=== PATIENT | female | born 1970 | race Caucasian/White ===

== ENCOUNTER 2016-06-15 10:41 | Emergency (ER) | payer BC ==
[2016-06-15 11:02] LABS: Hematocrit 44.3 % (37.0-47.0); Hemoglobin 15.1 gm/dL (12.5-16.0); Mean Cell Volume 93.1 fl (78-100); Mean Corpuscular Hemoglobin 31.7 pg (27-31); Mean Corpuscular Hgb Conc 34.1 g/dl (32-36); Mean Platelet Volume 10.1 fl (6.0-9.5); Neutrophil # 4.3 K/mm3 (1.3-6.0); Neutrophil % 57.9 % (42-75.0); Platelet Count 221 K/mm3 (150-450); Red Blood Count 4.76 M/mm3 (4.2-5.4); Red Cell Distribution Width 12.9 % (11.5-14.0); White Blood Count 7.5 K/mm3 (4.0-10.5)
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
[2016-06-15 11:10] LABS: Prothrombin Time (Patient) 9.9 Seconds (9.4-11.4)
[2016-06-15 11:11] LABS: INR 0.95 INR (0.90-1.10); Partial Thrombolplastin Time 29.5 Seconds (24-32)
--- OUTSIDE RECORDS SUMMARY | 2016-06-15 11:11 | XMS REPORT | Continuity of Care Document ---
:1970 Author Organization [facility] ([facility]) Address [address] [place] [address] Phone [phone] Care Team Providers Name Role Phone Lavon Edouard Primary Care Provider [phone] Source Comments This disclosure is being made pursuant to the Care Everywhere program, applicable federal and state laws, and may not contain all informaitonavailable regarding this patient.[facility] ([facility]) Active Allergies and Adverse Reactions Allergen Noted Date Severity Reactions Comments Codeine Asthma,Nausea & Vomiting Sumatriptan OTHER extreme flushing - feels like she's on fire Current Medications Prescription Sig. Disp. Refills Start Date End Date Status peniCILLIN V potassium take 1 Tab by mouth 28 Tab 0 12/24/2008 Active (VEETID) 500 mg tablet 4 times daily. Indications: Infection Prevention from Tooth Extraction chlorhexidine (PERIDEX) take 5 mL by mouth 473 mL 0 12/24/2008 Active 0.12 % solution 2 times daily. Swish and spit., Indications: Mouth Infection Prevention gabapentin 300 mg Take 300 mg by Active capsule mouth 2 times daily. cyanocobalamin (VITAMIN Take 1,000 mcg by Active B-12) 1,000 mcg tablet mouth daily. magnesium oxide PO Take 1 Tab by mouth Active daily. AMANTadine 100 mg Take 100 mg by Active capsule mouth 2 times daily. Active Problems Problem Noted Date Leg cramps 05/31/2013 Leg weakness 04/23/2013 Wears dentures 04/23/2013 Dental caries 12/06/2008 Tobacco abuse 12/06/2008 Pain in thoracic spine 05/23/2007 Carpal tunnel syndrome 07/06/2004 Other specified disorders of rotator cuff syndrome of shoulder and allied 01/2005 disorders Social History Tobacco Use Types Packs/Day Years Used Date Current Every Day Smoker 0.5 Smokeless Tobacco: Never Used Alcohol Use Drinks/Week oz/Week Comments Yes infrequent Last Filed Vital Signs Vital Sign Reading Time Taken Blood Pressure 135/79 05/31/2013 9:11 AM [employer] Pulse 85 05/31/2013 9:11 AM [employer] Temperature 36.2 C (97.16 F) 01/07/2004 10:05 AM CDT Respiratory Rate 18 12/24/2008 2:57 PM CDT Height 1.626 m (5' 4.02") 05/31/2013 9:11 AM [employer] Weight 89.132 kg (196 lb 8 oz) 05/31/2013 9:11 AM [employer] Body Mass Index 33.71 05/31/2013 9:11 AM [employer] Oxygen Saturation 96% 12/24/2008 2:57 PM CDT Plan of Care Health Maintenance Due Date Last Done Comments Hepatitis B Vaccine (1 of 3 - Primary Series) 1970 Tdap Vaccine 1981 Lipid Disorder Screening 02/15/1988 MMR Vaccine 02/15/1988 Td Vaccine 02/15/1988 Pneumococcal Vaccine (1 of 1 - PPSV23) 1989 Cervical Cancer Screening 02/15/2000 Mammogram 2010 Influenza Vaccine: Seasonal (#1) 10/27/2015 Results from Last 3 Months Not on file
[2016-06-15 11:16] LABS: ALT 31 U/L (19-67); AST 19 U/L (0-48); Albumin * 3.9 gm/dl (3.4-5.0); Alkaline Phosphatase * 115 U/L (50-170); Anion Gap 17.4 mmol/L (6.8-13.8); BUN/Creatinine Ratio 12.8 (9.0-21.6); Bilirubin, Total 0.3 mg/dL (0.0-1.1); Blood Urea Nitrogen 11 mg/dL (3-23); Ca. Corrected For Albumin 8.7 mg/dL (8.4-10.2); Calcium * 8.9 mg/dL (7.9-10.9); Chloride 103 mmol/L (97-106); Glucose * 100 mg/dL (70-110); Potassium 3.4 mmol/L (3.4-4.6); Sodium 142 mmol/L (132-142); Troponin I Less than 0.017 ng/ml (0.00-0.10)
[2016-06-15 11:39] VITALS: BP 104/68
== END 2016-06-15 11:40 | disposition home or self-care (01) ==
LOC: ER 10:41
DX: R07.89 Other chest pain (principal); F17.210 Nicotine dependence, cigarettes, uncomplicated